=== PATIENT | male | born 1985 | race Caucasian/White ===

== ENCOUNTER 2019-11-17 15:59 | Emergency (ER) | payer MEDICAID ==
[~2019-11-17] VITALS: Ht 172.7 cm; Wt 80.0 kg
[2019-11-17 17:26] LABS: BASOPHILS % 0.5 % (0.0-2.0); EOSINOPHILS % 2.2 % (0.0-5.0); HEMATOCRIT. 42.8 % (42.0-52.0); HEMOGLOBIN. 14.2 g/dL (14.0-18.0); LYMPHOCYTES % 31.8 % (20.0-50.0); MEAN CORPUSCULAR HEMOGLOBIN 28.4 pg (28.0-32.0); MEAN CORPUSCULAR VOLUME 85.6 fL (80.0-94.0); MEAN PLATELET VOLUME 8.9 fl (7.4-10.4); MONOCYTES % 8.3 % (2.0-8.0); NEUTROPHILS % 57.2 % (40.0-76.0); PLATELET 237 x1000/uL (130-400); RED CELL DISTRIBUTION WIDTH 13.6 % (11.6-14.6)
[2019-11-17 17:30] LABS: CHLORIDE 107 mEq/L (98-107)
[2019-11-17 17:31] LABS: CLARITY URINE CLEAR (CLEAR); COLOR URINE YELLOW (YELLOW); KETONES URINE NEGATIVE (NEGATIVE); LEUKOCYTE ESTERASE URINE NEGATIVE (NEGATIVE); NITRITE URINE NEGATIVE (NEGATIVE); OCCULT BLOOD URINE NEGATIVE (NEGATIVE); PH URINE 6.5 (4.5-8.0); PROTEIN URINE NEGATIVE (NEGATIVE); SPECIFIC GRAVITY URINE 1.016 (1.005-1.030); UROBILINOGEN URINE 0.2 E.U./dL (0.2-1.0)
[2019-11-17 18:00] LABS: *AMPHETAMINES SCREEN URINE NEGATIVE (NEGATIVE); *BARBITURATES SCREEN URINE NEGATIVE (NEGATIVE); *BENZODIAZEPINES SCREEN URINE NEGATIVE (NEGATIVE); *COCAINE SCREEN URINE NEGATIVE (NEGATIVE); METHADONE URINE SCREEN NEGATIVE (NEGATIVE); OPIATES URINE SCREEN NEGATIVE (NEGATIVE)
[2019-11-17 18:01] LABS: CANNABINOID URINE SCREEN NEGATIVE (NEGATIVE); PHENCYCLIDINE URINE SCREEN NEGATIVE (NEGATIVE)
[2019-11-18] MEDS: SERTRALINE HCL 50MG TABLET PO SCH (15:40)
[2019-11-18] MEDS ORDERED: ACETAMINOPHEN 325MG TABLET PO ONE (18:45)
[2019-11-19] MEDS: SERTRALINE HCL 50MG TABLET PO SCH (08:47)
[2019-11-19] MEDS: OLANZAPINE 10MG TABLET PO SCH (08:47)
[2019-11-20] MEDS: SERTRALINE HCL 50MG TABLET PO SCH (09:43)
[2019-11-20] MEDS: OLANZAPINE 10MG TABLET PO SCH (09:43)
[2019-11-20 11:55] VITALS: BP 110/69
== END 2019-11-20 12:00 | disposition home or self-care (01) ==
LOC: ER 15:59
DX: F32.9 Major depressive disorder, single episode, unspecified (principal); R45.851 Suicidal ideations; F25.9 Schizoaffective disorder, unspecified; Z03.818 Encounter for observation for suspected exposure to other biological agents ruled out; Z59.0 Homelessness; Z75.1 Person awaiting admission to adequate facility elsewhere
CPT/HCPCS: 36415; 80053; 80305; 80307; 80329; 81003; 85025; 87635; 99285